=== PATIENT | male | born 1975 | race Caucasian/White ===

== ENCOUNTER 2017-11-20 22:42 | Emergency (ER) | payer OTHER | END 2017-11-21 02:38 | disposition home or self-care (01) | LOC: FTE 22:42 | DX: G50.0 Trigeminal neuralgia (principal) | CPT/HCPCS: 99283 ==

== ENCOUNTER 2018-05-11 19:21 | Inpatient (IN) | payer OTHER ==
[2018-05-11 20:52] LABS: ADD MAN DIFF? NO
[2018-05-11 20:55] LABS: WHITE BLOOD COUNT 19.9 10^3/ul (4.8-10.8)
[2018-05-11 20:55] LABS: BASOPHIL # 0.1 10^3/ul (0.0-0.1); BASOPHILS % 0.3 % (0.0-2.0); EOSINOPHILS % 0.2 % (0.0-7.0); HEMATOCRIT 39.2 % (42.0-52.0); LYMPHOCYTES # 1.8 10^3/ul (0.8-2.9); LYMPHOCYTES % 8.9 % (15.0-51.0); MEAN CORPUSCULAR HEMOGLOBIN 27.1 pg (29.0-33.0); MEAN CORPUSCULAR HGB CONC 33.2 g/dl (32.0-37.0); MEAN CORPUSCULAR VOLUME 81.8 fl (82.0-101.0); MONOCYTE # 1.3 10^3/ul (0.3-0.9); MONOCYTES % 6.6 % (0.0-11.0); NEUTROPHIL # 16.6 10^3/ul (1.6-7.5); NEUTROPHILS % 83.3 % (39.0-77.0); PLATELET COUNT 210 10^3/UL (140-415); RED BLOOD COUNT 4.79 10^6/ul (4.70-6.10); RED CELL DISTRIBUTION WIDTH 12.9 % (11.5-14.5)
[2018-05-11] MEDS: SODIUM CHLORIDE 0.9% 1L BAG IV* (21:07)
[2018-05-11] MEDS: CLINDAMYCIN 900 MG/D5W (PMX) 50 ML IVPB (21:07)
[2018-05-11 21:14] LABS: INR 1.08; PROTIME 14.1 Sec (11.9-14.9); PT RATIO 1.1
[2018-05-11 21:15] LABS: PARTIAL THROMBOPLASTIN TIME 41.6 Sec (23.0-35.0)
[2018-05-11 21:19] LABS: ANION GAP 13 (5-13); BLOOD UREA NITROGEN 11 mg/dl (7-20); CALCIUM 9.5 mg/dl (8.4-10.2); CARBON DIOXIDE 26 mmol/L (21-31); CHLORIDE 95 mmol/L (97-110); CREATININE 0.59 mg/dl (0.61-1.24); Estimated GFR > 60 mL/min (>60); GLUCOSE 331 mg/dl (70-220); POTASSIUM 3.9 mmol/L (3.5-5.1); SODIUM 134 mmol/L (135-144)
[2018-05-11] MEDS ORDERED: ONDANSETRON 4 MG INJ IV ×2 (21:30→23:30)
[2018-05-11] MEDS ORDERED: ACETAMINOPHEN 325 MG TAB PO (21:30)
[2018-05-11 21:34] LABS: C-REACTIVE PROTEIN 26.7 mg/dl (0.0-0.9)
[2018-05-11 21:44] LABS: ADD UMIC YES; UR ASCORBIC ACID NEGATIVE (NEGATIVE); UR BILIRUBIN (Dip) NEGATIVE (NEGATIVE); UR BLOOD (Dip) 3+ mg/dL (NEGATIVE); UR CLARITY SLIGHTLY CLOUDY (CLEAR); UR COLOR YELLOW (YELLOW); UR GLUCOSE (Dip) 3+ mg/dL (NEGATIVE); UR KETONES (Dip) 2+ mg/dL (NEGATIVE); UR LEUKOCYTE ESTERASE (Dip) 2+ Leu/ul (NEGATIVE); UR NITRITE (Dip) POSITIVE (NEGATIVE); UR RBC > 182 /HPF (0-5); UR SPECIFIC GRAVITY (Dip) 1.037 (1.003-1.030); UR SQUAMOUS EPITHELIAL CELL FEW /HPF (FEW); UR TOTAL PROTEIN (Dip) 2+ mg/dl (NEGATIVE); UR UROBILINOGEN (Dip) 1+ mg/dL (NEGATIVE); UR WBC 94 /HPF (0-5)
[2018-05-11] MEDS: PIPER-TAZO 3.375 GM IV (PMX) 100 ML IVPB (23:24)
[2018-05-11] MEDS ORDERED: HYDROCODONE/APAP (5/325) TAB PO (23:30)
[2018-05-11] MEDS ORDERED: NACL 0.9% 3 ML SYG IV (23:30)
[2018-05-11] MEDS ORDERED: BISACODYL (EC) 5 MG TAB PO (23:30)
[2018-05-11] MEDS ORDERED: morphine 2 MG INJ IV (23:30)
[2018-05-11] MEDS ORDERED: VANCOMYCIN IV PER PHARMACY XX (23:30)
[2018-05-11] MEDS: INSULIN LISPRO 100 UNIT/ML VIAL SC (23:33)
[2018-05-11] MEDS: VANCOMYCIN 1 GM (PMX) 250 ML IVPB (23:55)
[2018-05-12] MEDS: ACCU-CHEK XX (01:17)
[2018-05-12] MEDS: ACETAMINOPHEN 325 MG TAB PO ×2 (01:26→14:38)
[2018-05-12 01:33] LABS: LACTIC ACID 1.3 mmol/L (0.5-2.0)
[2018-05-12] MEDS: VANCOMYCIN HCL 1.25 GM in SOD CHLORIDE 0.9% 250 ML IVPB ×3 (06:17→22:23)
[2018-05-12 06:26] LABS: ADD MAN DIFF? NO
[2018-05-12 06:31] LABS: BASOPHIL # 0.1 10^3/ul (0.0-0.1); BASOPHILS % 0.3 % (0.0-2.0); EOSINOPHILS % 0.2 % (0.0-7.0); HEMOGLOBIN 10.9 g/dl (14.0-18.0); LYMPHOCYTES # 2.4 10^3/ul (0.8-2.9); LYMPHOCYTES % 13.9 % (15.0-51.0); MEAN CORPUSCULAR HEMOGLOBIN 27.4 pg (29.0-33.0); MEAN CORPUSCULAR VOLUME 82.9 fl (82.0-101.0); MEAN PLATELET VOLUME 11.9 fl (7.4-10.4); MONOCYTE # 1.4 10^3/ul (0.3-0.9); MONOCYTES % 8.1 % (0.0-11.0); NEUTROPHIL # 13.5 10^3/ul (1.6-7.5); PLATELET COUNT 170 10^3/UL (140-415); RED BLOOD COUNT 3.98 10^6/ul (4.70-6.10); RED CELL DISTRIBUTION WIDTH 12.9 % (11.5-14.5)
[2018-05-12 06:31] LABS: WHITE BLOOD COUNT 17.5 10^3/ul (4.8-10.8)
[2018-05-12 06:47] LABS: HEMOGLOBIN A1C 12.7 % (0-5.9)
[2018-05-12 06:49] LABS: ALANINE AMINOTRANSFERASE 11 IU/L (13-69); ALBUMIN 3.2 g/dl (3.3-4.9); ALBUMIN/GLOBULIN RATIO 0.82; ALKALINE PHOSPHATASE 139 IU/L (42-121); ANION GAP 6 (5-13); ASPARTATE AMINO TRANSFERASE 13 IU/L (15-46); BILIRUBIN,INDIRECT 0.7 mg/dl (0-1.1); BILIRUBIN,TOTAL 0.7 mg/dl (0.2-1.3); BLOOD UREA NITROGEN 10 mg/dl (7-20); CALCIUM 8.7 mg/dl (8.4-10.2); CARBON DIOXIDE 27 mmol/L (21-31); CHLORIDE 104 mmol/L (97-110); CHOL/HDL RATIO 5.9 RATIO; CHOLESTEROL 137 mg/dl (100-200); CREATININE 0.57 mg/dl (0.61-1.24); Estimated GFR > 60 mL/min (>60); GLUCOSE 240 mg/dl (70-220); HDL CHOLESTEROL 23 mg/dl (27-67); LDL CHOLESTEROL,CALCULATED 85 mg/dl; MAGNESIUM 1.7 mg/dl (1.7-2.5); POTASSIUM 3.6 mmol/L (3.5-5.1); SODIUM 137 mmol/L (135-144); TOTAL PROTEIN 7.1 g/dl (6.1-8.1); TRIGLYCERIDES 145 mg/dl (0-149)
[2018-05-12] MEDS: ENOXAPARIN 30 MG/0.3 ML SYG SC (08:29)
[2018-05-12] MEDS: INSULIN ASPART [NOVOLOG] 3 ML PEN SC ×5 (08:30→21:20)
[2018-05-12] MEDS: INSULIN GLARGINE [LANTus] (100 UNITS/ML) SYG SC ×2 (08:31→21:17)
[2018-05-12 09:02] LABS: THYROID STIMULATING HORMONE 0.943 MIU/L (0.465-4.680)
[2018-05-12] MEDS: CEFEPIME 2GM/50 ML (PMX) 50 ML IVPB ×2 (10:59→21:16)
[2018-05-12] MEDS: SODIUM HYPOCHLORITE (1/40) 1 APPLIC BTL IRR (21:18)
[2018-05-13] MEDS: ACETAMINOPHEN 325 MG TAB PO (01:32)
[2018-05-13] MEDS: ACCU-CHEK XX (02:00)
[2018-05-13 06:10] LABS: ADD MAN DIFF? NO
[2018-05-13 06:12] LABS: BASOPHIL # 0.1 10^3/ul (0.0-0.1); BASOPHILS % 0.5 % (0.0-2.0); EOSINOPHILS # 0.1 10^3/ul (0.0-0.5); EOSINOPHILS % 0.4 % (0.0-7.0); HEMATOCRIT 33.6 % (42.0-52.0); LYMPHOCYTES # 2.7 10^3/ul (0.8-2.9); LYMPHOCYTES % 18.5 % (15.0-51.0); MEAN CORPUSCULAR HEMOGLOBIN 26.9 pg (29.0-33.0); MEAN CORPUSCULAR HGB CONC 32.7 g/dl (32.0-37.0); MEAN CORPUSCULAR VOLUME 82.2 fl (82.0-101.0); MEAN PLATELET VOLUME 11.9 fl (7.4-10.4); MONOCYTE # 1.2 10^3/ul (0.3-0.9); MONOCYTES % 8.1 % (0.0-11.0); NEUTROPHIL # 10.4 10^3/ul (1.6-7.5); NEUTROPHILS % 71.9 % (39.0-77.0); PLATELET COUNT 203 10^3/UL (140-415); RED BLOOD COUNT 4.09 10^6/ul (4.70-6.10)
[2018-05-13 06:12] LABS: WHITE BLOOD COUNT 14.5 10^3/ul (4.8-10.8)
[2018-05-13 06:23] LABS: VANCOMYCIN,TROUGH 12.1 ug/ml (10.0-20.0)
[2018-05-13 06:42] LABS: PHOSPHORUS 3.3 mg/dl (2.5-4.9)
[2018-05-13 06:42] LABS: MAGNESIUM 1.9 mg/dl (1.7-2.5)
[2018-05-13 06:45] LABS: ANION GAP 8 (5-13); BLOOD UREA NITROGEN 10 mg/dl (7-20); CARBON DIOXIDE 26 mmol/L (21-31); CHLORIDE 100 mmol/L (97-110); CREATININE 0.49 mg/dl (0.61-1.24); Estimated GFR > 60 mL/min (>60); GLUCOSE 266 mg/dl (70-220); POTASSIUM 3.2 mmol/L (3.5-5.1); SODIUM 134 mmol/L (135-144)
[2018-05-13] MEDS: VANCOMYCIN HCL 1.25 GM in SOD CHLORIDE 0.9% 250 ML IVPB ×3 (07:00→22:17)
[2018-05-13] MEDS: INSULIN ASPART [NOVOLOG] 3 ML PEN SC ×6 (08:10→21:00)
[2018-05-13] MEDS: POTASSIUM CHLORIDE (SR) 20 MEQ TAB PO (08:14)
[2018-05-13] MEDS: SODIUM HYPOCHLORITE (1/40) 1 APPLIC BTL IRR ×2 (09:00→21:28)
[2018-05-13] MEDS: CEFEPIME 2GM/50 ML (PMX) 50 ML IVPB ×2 (10:08→21:26)
[2018-05-13] MEDS: CHOLECALCIFEROL 2,000 UNIT CAP PO (13:48)
[2018-05-13] MEDS: INSULIN GLARGINE [LANTus] (100 UNITS/ML) SYG SC (21:26)
[2018-05-14] MEDS: ACCU-CHEK XX (02:00)
[2018-05-14 05:46] LABS: ADD MAN DIFF? NO
[2018-05-14 05:53] LABS: WHITE BLOOD COUNT 11.5 10^3/ul (4.8-10.8)
[2018-05-14 05:53] LABS: BASOPHIL # 0.1 10^3/ul (0.0-0.1); BASOPHILS % 0.6 % (0.0-2.0); EOSINOPHILS # 0.2 10^3/ul (0.0-0.5); EOSINOPHILS % 1.6 % (0.0-7.0); HEMATOCRIT 34.1 % (42.0-52.0); LYMPHOCYTES # 2.2 10^3/ul (0.8-2.9); LYMPHOCYTES % 19.3 % (15.0-51.0); MEAN CORPUSCULAR HEMOGLOBIN 26.8 pg (29.0-33.0); MEAN CORPUSCULAR HGB CONC 32.3 g/dl (32.0-37.0); MEAN PLATELET VOLUME 11.1 fl (7.4-10.4); MONOCYTE # 0.9 10^3/ul (0.3-0.9); MONOCYTES % 7.6 % (0.0-11.0); NEUTROPHIL # 8.1 10^3/ul (1.6-7.5); NEUTROPHILS % 70.3 % (39.0-77.0); PLATELET COUNT 200 10^3/UL (140-415); RED BLOOD COUNT 4.11 10^6/ul (4.70-6.10); RED CELL DISTRIBUTION WIDTH 12.8 % (11.5-14.5)
[2018-05-14 06:23] LABS: PHOSPHORUS 3.4 mg/dl (2.5-4.9)
[2018-05-14 06:23] LABS: MAGNESIUM 1.8 mg/dl (1.7-2.5)
[2018-05-14] MEDS: VANCOMYCIN HCL 1.25 GM in SOD CHLORIDE 0.9% 250 ML IVPB (06:24)
[2018-05-14 06:28] LABS: ANION GAP 7 (5-13); BLOOD UREA NITROGEN 11 mg/dl (7-20); CALCIUM 8.7 mg/dl (8.4-10.2); CARBON DIOXIDE 28 mmol/L (21-31); CHLORIDE 102 mmol/L (97-110); CREATININE 0.52 mg/dl (0.61-1.24); Estimated GFR > 60 mL/min (>60); GLUCOSE 169 mg/dl (70-220); POTASSIUM 3.6 mmol/L (3.5-5.1); SODIUM 137 mmol/L (135-144)
[2018-05-14] MEDS: INSULIN ASPART [NOVOLOG] 3 ML PEN SC ×7 (08:39→20:41)
[2018-05-14] MEDS: CHOLECALCIFEROL 2,000 UNIT CAP PO (08:40)
[2018-05-14] MEDS: SODIUM HYPOCHLORITE (1/40) 1 APPLIC BTL IRR ×2 (08:40→21:00)
[2018-05-14] MEDS: CEFEPIME 2GM/50 ML (PMX) 50 ML IVPB (10:37)
[2018-05-14] MEDS: CEFTRIAXONE 2 GM/50 ML (PMX) 50 ML IVPB (13:35)
[2018-05-14 15:32] LABS: CREATININE, RANDOM URINE 112 mg/dL (20-320); MICROALBUMIN 6.2 mg/dL; MICROALBUMIN/CREATININE RATIO 55 (<30)
[2018-05-14] MEDS ORDERED: GLUCOSE GEL 15 GRAM TUBE BUCCAL (18:30)
[2018-05-14] MEDS ORDERED: GLUCAGON 1 MG INJ IM (18:30)
[2018-05-14] MEDS ORDERED: DEXTROSE 50% 50 ML SYRINGE IV ×2 (18:30)
[2018-05-14] MEDS ORDERED: GLUCOSE GEL 15 GRAM TUBE PO ×2 (18:30)
[2018-05-14] MEDS ORDERED: GUAIFENESIN/DM 5ML CUP PO (19:30)
[2018-05-14] MEDS: LACTOBACILLUS RHAMNOSUS CAP PO (20:38)
[2018-05-14] MEDS: INSULIN GLARGINE [LANTus] (100 UNITS/ML) SYG SC (20:39)
[2018-05-14] MEDS ORDERED: morphine LIQ (10 MG/5 ML) CUP PO (23:30)
[2018-05-15] MEDS: ACCU-CHEK XX (02:05)
[2018-05-15 06:26] LABS: ADD MAN DIFF? NO
[2018-05-15 06:31] LABS: BASOPHIL # 0.1 10^3/ul (0.0-0.1); BASOPHILS % 0.7 % (0.0-2.0); EOSINOPHILS # 0.3 10^3/ul (0.0-0.5); EOSINOPHILS % 2.2 % (0.0-7.0); HEMATOCRIT 32.5 % (42.0-52.0); HEMOGLOBIN 10.7 g/dl (14.0-18.0); LYMPHOCYTES % 25.5 % (15.0-51.0); MEAN CORPUSCULAR HEMOGLOBIN 27.2 pg (29.0-33.0); MEAN CORPUSCULAR HGB CONC 32.9 g/dl (32.0-37.0); MEAN CORPUSCULAR VOLUME 82.5 fl (82.0-101.0); MEAN PLATELET VOLUME 11.1 fl (7.4-10.4); MONOCYTES % 8.3 % (0.0-11.0); NEUTROPHIL # 7.3 10^3/ul (1.6-7.5); NEUTROPHILS % 62.7 % (39.0-77.0); PLATELET COUNT 228 10^3/UL (140-415); RED BLOOD COUNT 3.94 10^6/ul (4.70-6.10); RED CELL DISTRIBUTION WIDTH 12.9 % (11.5-14.5)
[2018-05-15 06:31] LABS: WHITE BLOOD COUNT 11.7 10^3/ul (4.8-10.8)
[2018-05-15 06:55] LABS: INR 1.06; PROTIME 13.9 Sec (11.9-14.9); PT RATIO 1.1
[2018-05-15 07:05] LABS: ANION GAP 8 (5-13); BLOOD UREA NITROGEN 10 mg/dl (7-20); CALCIUM 8.9 mg/dl (8.4-10.2); CARBON DIOXIDE 30 mmol/L (21-31); CHLORIDE 101 mmol/L (97-110); CREATININE 0.45 mg/dl (0.61-1.24); Estimated GFR > 60 mL/min (>60); GLUCOSE 148 mg/dl (70-220); POTASSIUM 3.4 mmol/L (3.5-5.1); SODIUM 139 mmol/L (135-144)
[2018-05-15] MEDS: INSULIN ASPART [NOVOLOG] 3 ML PEN SC ×7 (07:35→21:00)
[2018-05-15] MEDS: CHOLECALCIFEROL 2,000 UNIT CAP PO (08:04)
[2018-05-15] MEDS: LACTOBACILLUS RHAMNOSUS CAP PO ×2 (08:05→21:07)
[2018-05-15] MEDS: ASPIRIN (EC) 81 MG TAB PO (08:09)
[2018-05-15] MEDS: SODIUM HYPOCHLORITE (1/40) 1 APPLIC BTL IRR ×2 (08:09→21:00)
[2018-05-15] MEDS ORDERED: LIDOCAINE 2% (SDV) 5 ML INJ (11:03)
[2018-05-15] MEDS ORDERED: MIDAZOLAM 1 MG/ML 2 ML INJ (11:04)
[2018-05-15] MEDS ORDERED: FENTAnyl 50 MCG/ML VIAL (11:04)
[2018-05-15] MEDS ORDERED: PROPOFOL 20 ML (11:04)
[2018-05-15] MEDS ORDERED: ONDANSETRON 4 MG INJ (11:05)
[2018-05-15] MEDS ORDERED: FAMOTIDINE 20 MG INJ (11:05)
[2018-05-15] MEDS ORDERED: METOCLOPRAMIDE 10 MG INJ (11:05)
[2018-05-15] MEDS: LIDOCAINE 1% (MPF) 30 ML INJ (12:38)
[2018-05-15] MEDS ORDERED: OXYCODONE/ACETAMINOPHEN (5/325) TAB PO ×2 (13:00)
[2018-05-15] MEDS ORDERED: ONDANSETRON 4 MG INJ IV (13:00)
[2018-05-15] MEDS ORDERED: HYDROmorphONE 1 MG/5 ML IV SYRINGE IV ×2 (13:00)
[2018-05-15] MEDS ORDERED: MEPERIDINE 25 MG INJ IV (13:00)
[2018-05-15] MEDS: CEFTRIAXONE 2 GM/50 ML (PMX) 50 ML IVPB (16:12)
[2018-05-15] MEDS: INSULIN GLARGINE [LANTus] (100 UNITS/ML) SYG SC (21:07)
[2018-05-16] MEDS: ACCU-CHEK XX (02:00)
[2018-05-16 05:56] LABS: ADD MAN DIFF? NO
[2018-05-16 06:01] LABS: WHITE BLOOD COUNT 11.1 10^3/ul (4.8-10.8)
[2018-05-16 06:01] LABS: BASOPHIL # 0.1 10^3/ul (0.0-0.1); BASOPHILS % 0.6 % (0.0-2.0); EOSINOPHILS # 0.2 10^3/ul (0.0-0.5); HEMATOCRIT 31.5 % (42.0-52.0); HEMOGLOBIN 10.1 g/dl (14.0-18.0); LYMPHOCYTES # 2.4 10^3/ul (0.8-2.9); LYMPHOCYTES % 21.4 % (15.0-51.0); MEAN CORPUSCULAR HEMOGLOBIN 26.7 pg (29.0-33.0); MEAN CORPUSCULAR HGB CONC 32.1 g/dl (32.0-37.0); MEAN CORPUSCULAR VOLUME 83.3 fl (82.0-101.0); MONOCYTE # 0.8 10^3/ul (0.3-0.9); NEUTROPHIL # 7.6 10^3/ul (1.6-7.5); NEUTROPHILS % 68.4 % (39.0-77.0); PLATELET COUNT 233 10^3/UL (140-415); RED BLOOD COUNT 3.78 10^6/ul (4.70-6.10); RED CELL DISTRIBUTION WIDTH 13.1 % (11.5-14.5)
[2018-05-16 06:52] LABS: ANION GAP 7 (5-13); BLOOD UREA NITROGEN 8 mg/dl (7-20); CALCIUM 8.9 mg/dl (8.4-10.2); CARBON DIOXIDE 30 mmol/L (21-31); CHLORIDE 100 mmol/L (97-110); CREATININE 0.45 mg/dl (0.61-1.24); Estimated GFR > 60 mL/min (>60); GLUCOSE 134 mg/dl (70-220); POTASSIUM 3.2 mmol/L (3.5-5.1); SODIUM 137 mmol/L (135-144)
[2018-05-16] MEDS: INSULIN ASPART [NOVOLOG] 3 ML PEN SC ×7 (07:54→21:00)
[2018-05-16] MEDS: SODIUM HYPOCHLORITE (1/40) 1 APPLIC BTL IRR ×2 (07:57→21:00)
[2018-05-16] MEDS: ASPIRIN (EC) 81 MG TAB PO (07:59)
[2018-05-16] MEDS: CHOLECALCIFEROL 2,000 UNIT CAP PO (07:59)
[2018-05-16] MEDS: LACTOBACILLUS RHAMNOSUS CAP PO ×2 (07:59→21:12)
[2018-05-16] MEDS: CEFTRIAXONE 2 GM/50 ML (PMX) 50 ML IVPB (12:30)
[2018-05-16] MEDS: INSULIN GLARGINE [LANTus] (100 UNITS/ML) SYG SC (21:16)
[2018-05-17] MEDS: ACETAMINOPHEN 325 MG TAB PO (01:01)
[2018-05-17] MEDS: ACCU-CHEK XX (02:00)
[2018-05-17] MEDS: DOCUSATE SODIUM 100 MG CAP PO (06:19)
[2018-05-17] MEDS: INSULIN ASPART [NOVOLOG] 3 ML PEN SC ×7 (08:00→20:22)
[2018-05-17] MEDS: ASPIRIN (EC) 81 MG TAB PO (08:11)
[2018-05-17] MEDS: LACTOBACILLUS RHAMNOSUS CAP PO ×2 (08:11→20:21)
[2018-05-17] MEDS: REPAGLINIDE 2 MG TAB PO ×3 (08:11→17:46)
[2018-05-17] MEDS: CHOLECALCIFEROL 2,000 UNIT CAP PO (08:11)
[2018-05-17] MEDS: SODIUM HYPOCHLORITE (1/40) 1 APPLIC BTL IRR ×2 (08:21→20:22)
[2018-05-17] MEDS: CEFTRIAXONE 2 GM/50 ML (PMX) 50 ML IVPB (12:00)
[2018-05-17] MEDS: INSULIN GLARGINE [LANTus] (100 UNITS/ML) SYG SC (20:22)
[2018-05-18] MEDS: ACCU-CHEK XX (02:00)
[2018-05-18 06:21] LABS: ADD MAN DIFF? NO
[2018-05-18 06:22] LABS: BASOPHIL # 0.1 10^3/ul (0.0-0.1); BASOPHILS % 0.7 % (0.0-2.0); EOSINOPHILS # 0.3 10^3/ul (0.0-0.5); EOSINOPHILS % 2.4 % (0.0-7.0); HEMATOCRIT 35.8 % (42.0-52.0); HEMOGLOBIN 11.3 g/dl (14.0-18.0); LYMPHOCYTES # 3.5 10^3/ul (0.8-2.9); LYMPHOCYTES % 28.8 % (15.0-51.0); MEAN CORPUSCULAR HEMOGLOBIN 26.8 pg (29.0-33.0); MEAN CORPUSCULAR HGB CONC 31.6 g/dl (32.0-37.0); MEAN CORPUSCULAR VOLUME 84.8 fl (82.0-101.0); MEAN PLATELET VOLUME 10.7 fl (7.4-10.4); MONOCYTE # 0.6 10^3/ul (0.3-0.9); NEUTROPHIL # 7.6 10^3/ul (1.6-7.5); NEUTROPHILS % 62.5 % (39.0-77.0); PLATELET COUNT 299 10^3/UL (140-415); RED BLOOD COUNT 4.22 10^6/ul (4.70-6.10); RED CELL DISTRIBUTION WIDTH 12.9 % (11.5-14.5)
[2018-05-18 06:22] LABS: WHITE BLOOD COUNT 12.1 10^3/ul (4.8-10.8)
[2018-05-18 06:50] LABS: ANION GAP 8 (5-13); BLOOD UREA NITROGEN 12 mg/dl (7-20); CALCIUM 9.5 mg/dl (8.4-10.2); CARBON DIOXIDE 31 mmol/L (21-31); CHLORIDE 102 mmol/L (97-110); CREATININE 0.46 mg/dl (0.61-1.24); Estimated GFR > 60 mL/min (>60); GLUCOSE 121 mg/dl (70-220); POTASSIUM 3.9 mmol/L (3.5-5.1); SODIUM 141 mmol/L (135-144)
[2018-05-18] MEDS: INSULIN ASPART [NOVOLOG] 3 ML PEN SC ×7 (08:00→20:26)
[2018-05-18] MEDS: REPAGLINIDE 2 MG TAB PO ×3 (08:06→17:31)
[2018-05-18] MEDS: SODIUM HYPOCHLORITE (1/40) 1 APPLIC BTL IRR ×2 (08:37→20:25)
[2018-05-18] MEDS: CHOLECALCIFEROL 2,000 UNIT CAP PO (08:40)
[2018-05-18] MEDS: NEOMYC/POLYMYX/BACIT 30 GM OINT TOP (08:40)
[2018-05-18] MEDS: LACTOBACILLUS RHAMNOSUS CAP PO ×2 (08:40→20:24)
[2018-05-18] MEDS: ASPIRIN (EC) 81 MG TAB PO (08:40)
[2018-05-18] MEDS: ENOXAPARIN 30 MG/0.3 ML SYG SC (08:44)
[2018-05-18] MEDS: CEFTRIAXONE 2 GM/50 ML (PMX) 50 ML IVPB (12:08)
[2018-05-18] MEDS: INSULIN GLARGINE [LANTus] (100 UNITS/ML) SYG SC (20:25)
[2018-05-19] MEDS: ACCU-CHEK XX (01:58)
[2018-05-19] MEDS: INSULIN ASPART [NOVOLOG] 3 ML PEN SC ×7 (08:00→20:47)
[2018-05-19] MEDS: ASPIRIN (EC) 81 MG TAB PO (08:23)
[2018-05-19] MEDS: LACTOBACILLUS RHAMNOSUS CAP PO ×2 (08:23→20:45)
[2018-05-19] MEDS: REPAGLINIDE 2 MG TAB PO ×3 (08:23→17:20)
[2018-05-19] MEDS: CHOLECALCIFEROL 2,000 UNIT CAP PO (08:24)
[2018-05-19] MEDS: NEOMYC/POLYMYX/BACIT 30 GM OINT TOP ×3 (08:25→14:40)
[2018-05-19] MEDS: ENOXAPARIN 30 MG/0.3 ML SYG SC (08:28)
[2018-05-19] MEDS: SODIUM HYPOCHLORITE (1/40) 1 APPLIC BTL IRR ×2 (08:30→20:47)
[2018-05-19] MEDS: CEFTRIAXONE 2 GM/50 ML (PMX) 50 ML IVPB (11:58)
[2018-05-19] MEDS: INSULIN GLARGINE [LANTus] (100 UNITS/ML) SYG SC (20:46)
[2018-05-20] MEDS: ACCU-CHEK XX (02:00)
[2018-05-20] MEDS: INSULIN ASPART [NOVOLOG] 3 ML PEN SC ×7 (08:00→21:00)
[2018-05-20] MEDS: ENOXAPARIN 30 MG/0.3 ML SYG SC (08:24)
[2018-05-20] MEDS: LACTOBACILLUS RHAMNOSUS CAP PO ×2 (08:24→21:00)
[2018-05-20] MEDS: SODIUM HYPOCHLORITE (1/40) 1 APPLIC BTL IRR ×2 (08:25→21:00)
[2018-05-20] MEDS: REPAGLINIDE 2 MG TAB PO ×3 (08:25→17:38)
[2018-05-20] MEDS: CHOLECALCIFEROL 2,000 UNIT CAP PO (08:25)
[2018-05-20] MEDS: ASPIRIN (EC) 81 MG TAB PO (08:25)
[2018-05-20] MEDS: NEOMYC/POLYMYX/BACIT 30 GM OINT TOP (08:26)
[2018-05-20] MEDS: CEFTRIAXONE 2 GM/50 ML (PMX) 50 ML IVPB (12:34)
[2018-05-20] MEDS: INSULIN GLARGINE [LANTus] (100 UNITS/ML) SYG SC (21:04)
[2018-05-20] MEDS: LIDOCAINE 1% (MPF) 5 ML VIAL SC (21:18)
[2018-05-21] MEDS: ACCU-CHEK XX (02:07)
[2018-05-21] MEDS: REPAGLINIDE 2 MG TAB PO ×3 (07:58→17:13)
[2018-05-21] MEDS: INSULIN ASPART [NOVOLOG] 3 ML PEN SC ×7 (07:59→21:00)
[2018-05-21] MEDS: LACTOBACILLUS RHAMNOSUS CAP PO ×2 (08:00→21:39)
[2018-05-21] MEDS: CHOLECALCIFEROL 2,000 UNIT CAP PO (08:00)
[2018-05-21] MEDS: ENOXAPARIN 30 MG/0.3 ML SYG SC (08:00)
[2018-05-21] MEDS: ASPIRIN (EC) 81 MG TAB PO (08:00)
[2018-05-21] MEDS: NEOMYC/POLYMYX/BACIT 30 GM OINT TOP (08:01)
[2018-05-21] MEDS: SODIUM HYPOCHLORITE (1/40) 1 APPLIC BTL IRR ×2 (08:02→21:00)
[2018-05-21] MEDS: CEFTRIAXONE 2 GM/50 ML (PMX) 50 ML IVPB (11:50)
[2018-05-21] MEDS: INSULIN GLARGINE [LANTus] (100 UNITS/ML) SYG SC (21:41)
[2018-05-22] MEDS: ACCU-CHEK XX (02:00)
[2018-05-22] MEDS: INSULIN ASPART [NOVOLOG] 3 ML PEN SC ×6 (08:00→17:58)
[2018-05-22] MEDS: REPAGLINIDE 2 MG TAB PO ×3 (08:10→17:56)
[2018-05-22] MEDS: SODIUM HYPOCHLORITE (1/40) 1 APPLIC BTL IRR (09:00)
[2018-05-22] MEDS: CHOLECALCIFEROL 2,000 UNIT CAP PO (09:38)
[2018-05-22] MEDS: LACTOBACILLUS RHAMNOSUS CAP PO (09:38)
[2018-05-22] MEDS: ASPIRIN (EC) 81 MG TAB PO (09:38)
[2018-05-22] MEDS: ENOXAPARIN 30 MG/0.3 ML SYG SC (09:40)
[2018-05-22] MEDS: NEOMYC/POLYMYX/BACIT 30 GM OINT TOP (09:45)
[2018-05-22] MEDS: CEFTRIAXONE 2 GM/50 ML (PMX) 50 ML IVPB (12:01)
== END 2018-05-22 18:30 | disposition home health service (06) | DRG 854 ==
LOC: PP2 21:20 → FTE 19:21
PROC: 0Y6M0ZF Detachment at Right Foot, Partial 5th Ray, Open Approach (ICD-10-PCS; 2018-05-15 11:00)
PROC: 0HRNXK3 Replacement of Left Foot Skin with Nonautologous Tissue Substitute, Full Thickness, External Approach (ICD-10-PCS; 2018-05-15 11:00)
PROC: 02HV33Z Insertion of Infusion Device into Superior Vena Cava, Percutaneous Approach (ICD-10-PCS; principal; 2018-05-15 12:07)
PROC: 0KBW0ZZ Excision of Left Foot Muscle, Open Approach (ICD-10-PCS; 2018-05-15 12:07)
PROC: 0Y9N0ZZ Drainage of Left Foot, Open Approach (ICD-10-PCS; 2018-05-15 12:07)
DX: A41.9 Sepsis, unspecified organism (principal); N39.0 Urinary tract infection, site not specified; E11.52 Type 2 diabetes mellitus with diabetic peripheral angiopathy with gangrene; I96 Gangrene, not elsewhere classified; M86.9 Osteomyelitis, unspecified; R65.20 Severe sepsis without septic shock; E11.621 Type 2 diabetes mellitus with foot ulcer; L97.529 Non-pressure chronic ulcer of other part of left foot with unspecified severity; E11.65 Type 2 diabetes mellitus with hyperglycemia; E66.9 Obesity, unspecified; E11.42 Type 2 diabetes mellitus with diabetic polyneuropathy; D64.9 Anemia, unspecified; E55.9 Vitamin D deficiency, unspecified; L03.032 Cellulitis of left toe; E11.69 Type 2 diabetes mellitus with other specified complication; R05 Cough; Z68.33 Body mass index [BMI] 33.0-33.9, adult
CPT/HCPCS: 36415; 36569; 71045; 73630-LT; 73718; 76937; 80048; 80053; 80061; 80202; 81001; 82043; 82306; 82652; 82962; 83036; 83605; 83735; 84100; 84443; 85025; 85610; 85730; 86140; 87040; 87070; 87075; 87086; 87102; 88304; 88311; 93005; 93923; 93970; 96374; 97161; 99291-25

== ENCOUNTER 2018-07-19 10:35 | Day surgery (SDC) | payer OTHER ==
[~2018-07-19 10:35] MED LIST: CEFAZOLIN 2 GM/50 ML (PMX) 50 ML IVPB; SEVOFLURANE 15 MIN
[2018-07-19] MEDS ORDERED: MINERAL OIL LIGHT 10 ML VIAL (12:19)
[2018-07-19] MEDS ORDERED: LIDOCAINE 1%/EPI (1:100,000) (MDV) 20 ML (12:19)
[2018-07-19] MEDS: LIDOCAINE 1%/EPI (1:100,000) (MDV) 20 ML INJ (12:30)
[2018-07-19] MEDS: MINERAL OIL LIGHT 10 ML VIAL TOP (12:30)
[2018-07-19] MEDS ORDERED: ONDANSETRON 4 MG INJ (12:51)
[2018-07-19] MEDS ORDERED: DEXAMETHASONE 4 MG/ML 5 ML INJ (12:51)
[2018-07-19] MEDS ORDERED: FAMOTIDINE 20 MG INJ (12:51)
[2018-07-19] MEDS ORDERED: PROPOFOL 20 ML (12:51)
[2018-07-19] MEDS ORDERED: LIDOCAINE 2% (SDV) 5 ML INJ (12:51)
[2018-07-19] MEDS ORDERED: CEFAZOLIN 1 GM INJ (12:51)
[2018-07-19] MEDS ORDERED: EPHEDrine 25 MG/5 ML SYG (12:56)
[2018-07-19] MEDS ORDERED: GLYCOPYRROLATE 0.4 MG INJ (12:56)
[2018-07-19] MEDS ORDERED: ONDANSETRON 4 MG INJ IV (14:00)
[2018-07-19] MEDS ORDERED: KETOROLAC 30 MG INJ IV (14:00)
[2018-07-19] MEDS ORDERED: HYDROmorphONE 1 MG/5 ML IV SYRINGE IV ×2 (14:00)
[2018-07-19] MEDS ORDERED: OXYCODONE/ACETAMINOPHEN (5/325) TAB PO ×2 (14:00)
[2018-07-19] MEDS ORDERED: FENTAnyl 50 MCG/ML VIAL IV ×2 (14:00)
[2018-07-19] MEDS ORDERED: MEPERIDINE 25 MG INJ IV (14:00)
== END 2018-07-19 15:55 | disposition home or self-care (01) ==
LOC: SDS 10:35
DX: E11.621 Type 2 diabetes mellitus with foot ulcer (principal); E11.42 Type 2 diabetes mellitus with diabetic polyneuropathy; Z79.82 Long term (current) use of aspirin; Z79.84 Long term (current) use of oral hypoglycemic drugs; Z79.4 Long term (current) use of insulin
CPT/HCPCS: 15120; 82962

== ENCOUNTER 2018-09-05 06:56 | Emergency (ER) | payer OTHER | END 2018-09-05 07:55 | disposition home or self-care (01) | LOC: E/R 06:56 | DX: S90.822A Blister (nonthermal), left foot, initial encounter (principal); I10 Essential (primary) hypertension; E11.621 Type 2 diabetes mellitus with foot ulcer; L97.529 Non-pressure chronic ulcer of other part of left foot with unspecified severity; X58.XXXA Exposure to other specified factors, initial encounter; Y92.9 Unspecified place or not applicable; Z79.4 Long term (current) use of insulin; Z79.82 Long term (current) use of aspirin | CPT/HCPCS: 99282 ==

== ENCOUNTER 2018-12-15 12:19 | Emergency (ER) | payer OTHER | END 2018-12-15 13:26 | disposition home or self-care (01) | LOC: FTE 12:19 | DX: A09 Infectious gastroenteritis and colitis, unspecified (principal); I10 Essential (primary) hypertension; E11.9 Type 2 diabetes mellitus without complications; Z79.82 Long term (current) use of aspirin; Z79.4 Long term (current) use of insulin | CPT/HCPCS: 99283 ==